=== PATIENT | female | born 1965 | race Caucasian/White ===

== ENCOUNTER 2017-02-16 17:33 | Emergency (ER) | payer SELFPAY ==
[2017-02-16 18:41] LABS: Basophils % (Auto) 0.1 % (0.0-1.8); Eosinophils % (Auto) 0.8 % (0.0-4.3); Hematocrit 43.4 % (30.3-42.9); Hemoglobin 14.2 gm/dl (10.1-14.3); Mean Corpuscular HGB Conc 33 % (30-34); Mean Corpuscular Hemoglobin 27 pg (28-32); Mean Corpuscular Volume 83 fl (79-97); Platelet Count 245 K/mm3 (140-440); Red Blood Count 5.26 M/mm3 (3.65-5.03); Red Cell Distribution Width 14.1 % (13.2-15.2); White Blood Count 10.2 K/mm3 (4.5-11.0)
[2017-02-16 18:50] LABS: Alanine Aminotransferase 14 units/L (7-56); Albumin 4.4 g/dL (3.9-5); Albumin/Globulin Ratio 1.5 %; Alkaline Phosphatase 89 units/L (35-129); Anion Gap 19 mmol/L; Blood Urea Nitrogen 9 mg/dL (7-17); Calcium 9.3 mg/dL (8.4-10.2); Carbon Dioxide 25 mmol/L (22-30); Chloride 100.8 mmol/L (98-107); Glucose 105 mg/dL (65-100); Potassium 4.5 mmol/L (3.6-5.0); Sodium 140 mmol/L (137-145); Total Protein 7.3 g/dL (6.3-8.2)
[2017-02-17] MEDS ORDERED: TETRACAINE 0.5% OD STA (00:06)
[2017-02-17] MEDS ORDERED: FUL-GLO OP ONE (00:06)
--- NOTE | 2017-02-17 00:07 | Emergency Department Report ---
ED General Adult HPI - General Chief complaint: Eye Problems Stated complaint: STYE ON LT EYE/POSS INFECTION Time Seen by Provider: 02/16/17 23:51 Source: patient, RN notes reviewed Mode of arrival: Ambulatory Limitations: No Limitations - History of Present Illness Initial comments: This is a 51-year-old female. She is previously unknown to me. She does not have a local primary care doctor. She is a contact lens wearer. She thinks that she has a history of diabetes. She presents to the ER with left-sided periorbital redness, pain, swelling, green/yellow discharge. To me she denies loss of vision and change in visual acuity. She denies scratchy sensation and foreign body sensation. She reports that this is happened to her once before in the past. The pain is achy, and increases with palpation, and decreases with rest. There is no headache, neck pain, chest pain, abdominal pain, shortness of breath. She reports that she is not . -: Gradual Location: eyes Severity scale (0 -10): 9 Quality: aching Consistency: intermittent Improves with: rest Worsens with: movement Associated Symptoms: denies other symptoms - Related Data Previous Rx's Medication Instructions Recorded Last Taken Type Clindamycin [Clindamycin CAP] 300 mg PO Q6HR #20 cap 02/17/17 Unknown Rx Ibuprofen [Motrin] 600 mg PO Q8H PRN #30 tablet 02/17/17 Unknown Rx Allergies Allergy/AdvReac Type Severity Reaction Status Date / Time sulfamethoxazole Allergy Swelling Verified 02/16/17 17:50 [From Bactrim] trimethoprim [From Bactrim] Allergy Swelling Verified 02/16/17 17:50 ED Review of Systems ROS: Stated complaint: STYE ON LT EYE/POSS INFECTION Other details as noted in HPI ED Past Medical Hx - Past Medical History Previous Medical History?: Yes Hx Diabetes: Yes (PO meds) - Surgical History Past Surgical History?: Yes - Social History Smoking Status: Current Every Day Smoker Substance Use Type: None - Medications Home Medications: Home Medications Medication Instructions Recorded Confirmed Last Taken Type Clindamycin [Clindamycin CAP] 300 mg PO Q6HR #20 cap 02/17/17 Unknown Rx Ibuprofen [Motrin] 600 mg PO Q8H PRN #30 tablet 02/17/17 Unknown Rx ED Physical Exam - General Limitations: No Limitations General appearance: alert, in no apparent distress - Head Head exam: Present: atraumatic, normocephalic - Eye Eye exam: Present: PERRL (visual acuity intact to finger counting, color perception, reading at a close distance), EOMI, conjunctival injection, other ( there is left-sided supraorbital and infraorbital swelling. Negative fluorescein uptake. Negative Eryn sign. No direct or consensual photophobia. ). Absent: scleral icterus (no obvious discharge is noted. Hordeolum is suggested.) - ENT ENT exam: Present: normal orophraynx, mucous membranes moist, TM's normal bilaterally, normal external ear exam, other (there is no mastoid tenderness) - Neck Neck exam: Present: normal inspection, full ROM - Respiratory Respiratory exam: Present: normal lung sounds bilaterally. Absent: respiratory distress, wheezes, rales, rhonchi, stridor, chest wall tenderness, accessory muscle use, decreased breath sounds, prolonged expiratory - Cardiovascular Cardiovascular Exam: Present: regular rate, normal rhythm, normal heart sounds. Absent: systolic murmur, diastolic murmur, rubs, gallop - GI/Abdominal GI/Abdominal exam: Present: soft, normal bowel sounds. Absent: distended, tenderness, guarding, rebound, rigid, pulsatile mass - Extremities Exam Extremities exam: Present: normal inspection, full ROM, normal capillary refill. Absent: pedal edema, joint swelling, calf tenderness - Back Exam Back exam: Present: normal inspection, full ROM. Absent: tenderness, CVA tenderness (R), paraspinal tenderness - Neurological Exam Neurological exam: Present: alert, oriented X3, normal gait, other (Extraocular movements intact. Tongue midline. No facial droop. Facial sensation intact to light touch in the V1, V2, V3 distribution bilaterally. 5 and 5 strength in 4 extremities.. Sensation is intact to light touch in 4 extremities.). Absent : motor sensory deficit - Psychiatric Psychiatric exam: Present: normal affect, normal mood - Skin Skin exam: Present: warm, rash, erythema ED Course Vital Signs 02/16/17 02/17/17 02/17/17 17:50 00:20 00:51 Temperature 98.7 F Pulse Rate 86 79 Respiratory 20 Rate Blood Pressure 187/121 203/114 Blood Pressure 203/114 [Right] O2 Sat by Pulse 96 Oximetry 02/17/17 01:06 Temperature Pulse Rate Respiratory 14 Rate Blood Pressure Blood Pressure [Right] O2 Sat by Pulse 98 Oximetry ED Medical Decision Making - Lab Data Result diagrams: 02/16/17 18:02 02/16/17 18:02 Vital Signs 02/16/17 02/17/17 02/17/17 17:50 00:20 00:51 Temperature 98.7 F Pulse Rate 86 79 Respiratory 20 Rate Blood Pressure 187/121 203/114 Blood Pressure 203/114 [Right] O2 Sat by Pulse 96 Oximetry 02/17/17 02/17/17 01:06 01:51 Temperature Pulse Rate 67 Respiratory 14 14 Rate Blood Pressure Blood Pressure 166/90 [Right] O2 Sat by Pulse 98 98 Oximetry Labs 02/16/17 02/16/17 18:02 18:02 WBC 10.2 RBC 5.26 H Hgb 14.2 Hct 43.4 H MCV 83 MCH 27 L MCHC 33 RDW 14.1 Plt Count 245 Lymph % (Auto) 26.5 [place] % (Auto) 5.7 Eos % (Auto) 0.8 Baso % (Auto) 0.1 Lymph # 2.7 [place] # 0.6 Eos # 0.1 Baso # 0.0 Seg Neutrophils % 66.9 Seg Neutrophils # 6.8 Sodium 140 Potassium 4.5 Chloride 100.8 Carbon Dioxide 25 Anion Gap 19 BUN 9 Creatinine 0.6 L Estimated GFR > 60 BUN/Creatinine Ratio 15.00 Glucose 105 H Calcium 9.3 Total Bilirubin 0.70 AST 10 ALT 14 Alkaline Phosphatase 89 Total Protein 7.3 Albumin 4.4 Albumin/Globulin Ratio 1.5 - Medical Decision Making Differential diagnosis: Cellulitis, allergic reaction, hordeolum, chalazion, asymptomatic hypertension Assessment and plan: 51-year-old female who is a contact lens wearer with left periorbital redness involving the superior eyelid and inferior eyelid. There is no pain with extraocular movements, there is no diplopia, there is no proptosis, there is no fever or chills. Visual acuity intact to finger counting , color perception, reading at a close distance. Patient is starting to do warm compresses. She will be started on antibiotics empirically. She is instructed to stop wearing contact lenses in the left eye. She is instructed to follow-up with an outpatient opticianry teacher. Found to be hypertensive incidentally, this improved with clonidine. Patient's blood pressure is incidental and asymptomatic. She is to follow-up with her outpatient primary care doctor for her elevated blood pressure. Given her physical exam findings, history, benign appearance, I think deep space infection is very unlikely, and I don't believe the patient requires advanced for emergent imaging at this time. As per the [employer] clinical policy on asymptomatic hypertension:Are ED blood pressure readings accurate and reliable for screening asymptomatic patients for hypertension? Level A recommendations. None specified. Level B recommendations. If blood pressure measurements are persistently elevated with a systolic blood pressure greater than 140 mm Hg or diastolic blood pressure greater than 90 mm Hg, the patient should be referred for follow- up of possible hypertension and blood pressure management. Level C recommendations. Patients with a single elevated blood pressure reading may require further screening for hypertension in the outpatient setting. 2. Do asymptomatic patients with elevated blood pressures benefit from rapid lowering of their blood pressure? Level A recommendations. None specified. Level B recommendations. (1) Initiating treatment for asymptomatic hypertension in the ED is not necessary when patients have follow-up; (2) Rapidly lowering blood pressure in asymptomatic patients in the ED is unnecessary and may be harmful in some patients; (3) When ED treatment for asymptomatic hypertension is initiated, blood pressure management should attempt to gradually lower blood pressure and should not be expected to be normalized during the initial ED visit. Level C recommendations. None specified. Critical care attestation.: If time is entered above; I have spent that time in minutes in the direct care of this critically ill patient, excluding procedure time. ED Disposition Clinical Impression: Pain of left eyelid, Elevated blood pressure reading Disposition: TO HOME OR SELFCARE Is pt being admited?: No Does the pt Need Aspirin: No Condition: Good Instructions: Ashley (ED) Additional Instructions: Apply warm compresses to the left eye as often as as needed. Follow up with an opticianry teacher within the next 5-7 days. Take the antibiotics as directed. Do not insert contact lenses to the left eye until cleared by a primary care doctor or opticianry teacher. Dr. Lambert is a local opticianry teacher specialist. Take the pain medication, antibiotics as directed. Follow-up with the primary care doctor within the next 3-[address] Burciaga is a local primary care doctor. Return to the ER right away with new pain, worsened pain, migration of pain, confusion, inability to move the eye, and inability to open the eye, loss of vision, chest pain, shortness of breath, intractable nausea or vomiting. Note that blood pressure was elevated in the emergency department. This should be followed up by her primary care doctor is recommended. Long-term complications of hypertension includes stroke, heart attack, disability, , paralysis, loss of quality of life. Prescriptions: Clindamycin [Clindamycin CAP] 300 mg PO Q6HR #20 cap Ibuprofen [Motrin] 600 mg PO Q8H PRN #30 tablet PRN Reason: Pain Referrals: PRIMARY CARE, [Primary Care Provider] - 3-5 Days ASA LAMBERT MD [Staff Physician] - 3-5 Days ABRAM BURCIAGA MD [Staff Physician] - 3-5 Days
[2017-02-17] MEDS ORDERED: MOTRIN PO ONE (00:19)
[2017-02-17] MEDS ORDERED: CATAPRES PO ONE (00:19)
[2017-02-17 01:52] VITALS: BP 166/90
== END 2017-02-17 02:19 | disposition home or self-care (01) ==
LOC: ED 17:33
DX: H57.12 Ocular pain, left eye (principal); R03.0 Elevated blood-pressure reading, without diagnosis of hypertension; E11.9 Type 2 diabetes mellitus without complications; F17.200 Nicotine dependence, unspecified, uncomplicated
CPT/HCPCS: 36415; 80053; 85025

== ENCOUNTER 2017-11-29 07:38 | Emergency (ER) | payer SELFPAY ==
[2017-11-29 08:13] LABS: Basophils % (Auto) 0.3 % (0.0-1.8); Eosinophils # (Auto) 0.1 K/mm3 (0.0-0.4); Eosinophils % (Auto) 0.7 % (0.0-4.3); Hemoglobin 14.7 gm/dl (10.1-14.3); Lymphocytes # (Auto) 2.3 K/mm3 (1.2-5.4); Lymphocytes % (Auto) 20.2 % (13.4-35.0); Mean Corpuscular HGB Conc 33 % (30-34); Mean Corpuscular Hemoglobin 28 pg (28-32); Mean Corpuscular Volume 83 fl (79-97); Monocytes # (Auto) 0.6 K/mm3 (0.0-0.8); Monocytes % (Auto) 5.7 % (0.0-7.3); Platelet Count 202 K/mm3 (140-440); Red Blood Count 5.33 M/mm3 (3.65-5.03); Red Cell Distribution Width 14.2 % (13.2-15.2)
[2017-11-29 08:31] LABS: BUN/Creatinine Ratio 12; Blood Urea Nitrogen 6 mg/dL (7-17); Calcium 8.7 mg/dL (8.4-10.2); Hemolysis Index 6
--- NOTE | 2017-11-29 08:41 | XRay Report ---
CHEST TWO VIEWS: 11/29/17 07:38:00 CLINICAL: Shortness of breath. COMPARISON: Productive cough for 2 weeks. FINDINGS: Normal heart and pulmonary vasculature. The lungs are normally expanded and clear. Mild degenerative changes in the spine. IMPRESSION: No acute cardiopulmonary process.
[2017-11-29] MEDS ORDERED: CATAPRES ONE (11:05)
[2017-11-29] MEDS ORDERED: CATAPRES PO ONE ×3 (11:09→12:00)
[2017-11-29 11:55] VITALS: BP 194/102
--- NOTE | 2017-11-29 12:04 | Emergency Department Report ---
ED General Adult HPI - General Chief complaint: Dyspnea/Respdistress Stated complaint: FLU LIKE SYMPTOMS Time Seen by Provider: 11/29/17 11:35 Source: patient Mode of arrival: Ambulatory Limitations: No Limitations - History of Present Illness Initial comments: Patient is a 51-year-old female who is presenting with cough, congestion for approximately 2 weeks. Patient states his cough is productive of yellow sputum. Patient states he has been getting short of breath and has some discomfort when she lays flat. Patient feels a choking sensation. Patient states she has some chest discomfort especially when she coughs. Patient states his pain is 8 out of 10 in severity. Patient states it's just a tight feeling. Patient also is complaining of smashing of sore throat. Patient states she's been taking large amounts of pseudoephedrine at home which is not helping. Patient denies any current fevers chills nausea vomiting diarrhea or abdominal pain at this time. - Related Data Previous Rx's Medication Instructions Recorded Last Taken Type Clindamycin [Clindamycin CAP] 300 mg PO Q6HR #20 cap 02/17/17 Unknown Rx Ibuprofen [Motrin] 600 mg PO Q8H PRN #30 tablet 02/17/17 Unknown Rx ALBUTEROL Inhaler [ProAir HFA 2 puff IH QID PRN #1 inhalation 11/29/17 Unknown Rx Inhaler] Azithromycin [Zithromax] 250 mg PO DAILY #6 tablet 11/29/17 Unknown Rx Fluticasone (Nf) [Flovent Hfa(Nf)] 2 puff IH BID 3 Days #1 device 11/29/17 Unknown Rx guaiFENesin/CODEINE [Robitussin AC] 5 ml PO Q6HR #100 oral.liqd 11/29/17 Unknown Rx Allergies Allergy/AdvReac Type Severity Reaction Status Date / Time sulfamethoxazole Allergy Swelling Verified 02/16/17 17:50 [From Bactrim] trimethoprim [From Bactrim] Allergy Swelling Verified 02/16/17 17:50 ED Review of Systems ROS: Stated complaint: FLU LIKE SYMPTOMS Other details as noted in HPI Comment: All other systems reviewed and negative ED Past Medical Hx - Past Medical History Previous Medical History?: Yes Hx Hypertension: Yes (noo meds) Hx Diabetes: Yes (PO meds) - Surgical History Past Surgical History?: Yes Additional Surgical History: Hysterectomy, x 1, Tubaligation - Social History Smoking Status: Current Every Day Smoker Substance Use Type: Alcohol, Prescribed - Medications Home Medications: Home Medications Medication Instructions Recorded Confirmed Last Taken Type Clindamycin [Clindamycin CAP] 300 mg PO Q6HR #20 cap 02/17/17 Unknown Rx Ibuprofen [Motrin] 600 mg PO Q8H PRN #30 tablet 02/17/17 Unknown Rx ALBUTEROL Inhaler [ProAir HFA 2 puff IH QID PRN #1 inhalation 11/29/17 Unknown Rx Inhaler] Azithromycin [Zithromax] 250 mg PO DAILY #6 tablet 11/29/17 Unknown Rx Fluticasone (Nf) [Flovent Hfa(Nf)] 2 puff IH BID 3 Days #1 device 11/29/17 Unknown Rx guaiFENesin/CODEINE [Robitussin AC] 5 ml PO Q6HR #100 oral.liqd 11/29/17 Unknown Rx ED Physical Exam - General Limitations: No Limitations General appearance: alert, in no apparent distress - Head Head exam: Present: atraumatic, normocephalic - Eye Eye exam: Present: normal appearance - ENT ENT exam: Present: mucous membranes moist - Neck Neck exam: Present: normal inspection - Respiratory Respiratory exam: Present: normal lung sounds bilaterally. Absent: respiratory distress, wheezes, rales, rhonchi, stridor - Cardiovascular Cardiovascular Exam: Present: regular rate, normal rhythm. Absent: systolic murmur, diastolic murmur, rubs, gallop - GI/Abdominal GI/Abdominal exam: Present: soft, normal bowel sounds. Absent: distended, tenderness, guarding - Extremities Exam Extremities exam: Present: normal inspection - Back Exam Back exam: Present: normal inspection - Neurological Exam Neurological exam: Present: alert, oriented X3 - Psychiatric Psychiatric exam: Present: normal affect, normal mood - Skin Skin exam: Present: warm, dry, intact, normal color. Absent: rash ED Course Vital Signs 11/29/17 11/29/17 11/29/17 07:41 11:04 11:10 Temperature 98.1 F Pulse Rate 86 68 68 Respiratory 20 16 Rate Blood Pressure 194/110 200/102 Blood Pressure 200/102 [Left] O2 Sat by Pulse 97 99 Oximetry 11/29/17 11:54 Temperature Pulse Rate Respiratory Rate Blood Pressure Blood Pressure 194/102 [Left] O2 Sat by Pulse Oximetry ED Medical Decision Making - Lab Data Result diagrams: 11/29/17 07:57 11/29/17 07:57 - EKG Data -: EKG Interpreted by Me - EKG Data Interpretation: other (EKG shows sinus rhythm rate 80 to normal axis normal intervals no ST segment elevations or depressions) - Radiology Data Chest x-ray is within normal limits - Medical Decision Making Patient ruled out for having pneumonia at this time. Patient was likely has an acute bronchitis. Because of the duration of the patient's symptoms and her history of diabetes patient will be placed on antibiotics. Patient also be given an inhaler as well as [place] for pain and cough. Patient be discharged home this time. Patient's blood pressure was elevated but may be secondary to her [id number] med use. Patient's been told to discontinue the Sudafed decongestant since she's been taking. Patient has no signs of end organ damage at this time and can follow up after she feels better for recheck of her blood pressure. Critical care attestation.: If time is entered above; I have spent that time in minutes in the direct care of this critically ill patient, excluding procedure time. ED Disposition Clinical Impression: Acute bronchitis Disposition: DC-01 TO HOME OR SELFCARE Is pt being admited?: No Does the pt Need Aspirin: No Condition: Stable Instructions: Acute Bronchitis (ED) Prescriptions: ALBUTEROL Inhaler [ProAir HFA Inhaler] 2 puff IH QID PRN #1 inhalation PRN Reason: Shortness Of Breath Fluticasone (Nf) [Flovent Hfa(Nf)] 2 puff IH BID 3 Days #1 device guaiFENesin/CODEINE [Robitussin AC] 5 ml PO Q6HR #100 oral.liqd Referrals: PRIMARY CARE, [Primary Care Provider] - 3-5 Days
== END 2017-11-29 12:11 | disposition home or self-care (01) ==
LOC: ED 07:38
DX: J20.9 Acute bronchitis, unspecified (principal); Z88.2 Allergy status to sulfonamides; I10 Essential (primary) hypertension; F17.200 Nicotine dependence, unspecified, uncomplicated; E11.9 Type 2 diabetes mellitus without complications; Z90.710 Acquired absence of both cervix and uterus; Z98.51 Tubal ligation status
CPT/HCPCS: 36415; 71046; 80048; 83880; 84484; 85025; 93005; 93010